=== PATIENT | female | born 1990 | race Caucasian/White ===

== ENCOUNTER 2021-08-18 00:58 | Emergency (ER) | payer OTHER ==
[~2021-08-18] VITALS: Ht 165.1 cm; Wt 90.7 kg
[~2021-08-18 00:58] MED LIST: AMOXICILLIN500 MG PO; CIPRODEX 0.3%-7.5 ML OT; CLARITIN10 MG PO; DIFLUCAN150 MG PO; PREDNISONE20 MG PO; TRAMADOL HCL50 MG PO; ZITHROMAX Z PA250 MG PO
[2021-08-18] MEDS ORDERED: NAPROSYN500 MG PO (02:35)
[2021-08-18] MEDS ORDERED: AUGMENTIN 875875 MG PO (02:35)
[2021-08-18] MEDS ORDERED: CIPRODEX 0.3%-7.5 ML OT (02:35)
== END 2021-08-18 03:00 | disposition home or self-care (01) ==
LOC: ED 00:58
DX: H60.91 Unspecified otitis externa, right ear (principal); Z88.8 Allergy status to other drugs, medicaments and biological substances